=== PATIENT | male | born 1995 | race Hispanic/Latino ===

== ENCOUNTER 2017-02-12 13:24 | Emergency (ER) | payer SELFPAY ==
[2017-02-12] MEDS ORDERED: Ibuprofen 200 MG TAB ONE (13:43)
== END 2017-02-12 14:46 | disposition home or self-care (01) ==
LOC: ERS 13:24
DX: B34.9 Viral infection, unspecified (principal); J45.909 Unspecified asthma, uncomplicated; Z79.899 Other long term (current) drug therapy
CPT/HCPCS: 87081; 87430; 99283

== ENCOUNTER 2017-05-15 08:37 | Emergency (ER) | payer SELFPAY ==
[2017-05-15] MEDS ORDERED: Dexamethasone 10 MG/ML VIAL ONE (08:58)
[2017-05-15] MEDS ORDERED: Ibuprofen 800 MG TAB ONE (08:58)
--- NOTE | 2017-05-15 10:07 | RAD ---
THREE VIEWS RIGHT WRIST: History: Right wrist injury with pain one week ago. Continued pain. FINDINGS: AP, lateral, and oblique views of the right wrist were obtained and demonstrate no definite evidence of right wrist fractures, subluxations, or bony lesions. IMPRESSION: Normal three views right wrist. POS: [facility]
== END 2017-05-15 09:50 | disposition home or self-care (01) ==
LOC: ERS 08:37
DX: G56.01 Carpal tunnel syndrome, right upper limb (principal); G56.21 Lesion of ulnar nerve, right upper limb; J45.909 Unspecified asthma, uncomplicated
CPT/HCPCS: 96372; J1100

== ENCOUNTER 2017-05-22 22:15 | Emergency (ER) | payer SELFPAY ==
[2017-05-23] MEDS ORDERED: Ketorolac Tromethamine 30 MG/ML VIAL ONE (02:02)
== END 2017-05-23 02:23 | disposition home or self-care (01) ==
LOC: ERS 22:15
DX: B34.9 Viral infection, unspecified (principal); J45.909 Unspecified asthma, uncomplicated
CPT/HCPCS: 96372; J1885

== ENCOUNTER 2017-10-01 00:07 | Emergency (ER) | payer SELFPAY ==
[2017-10-01] MEDS ORDERED: Acetaminophen 500 MG TAB ONE (05:32)
[2017-10-01] MEDS ORDERED: Ketorolac Tromethamine 30 MG/ML VIAL ONE (05:32)
[2017-10-01 05:54] LABS: Troponin I Less than 0.010 ng/mL (< 0.028)
--- NOTE | 2017-10-01 08:35 | RAD ---
2 VIEWS CHEST: Date: 10/01/17 COMPARISON: 12/22/15. HISTORY: Shortness of breath. FINDINGS: There is no pneumothorax, pleural fluid, focal consolidation, or alveolar edema. Heart and mediastina l contours appear grossly unremarkable. IMPRESSION: No acute findings. POS: [facility]
== END 2017-10-01 06:22 | disposition home or self-care (01) ==
LOC: ERS 00:07
DX: R07.89 Other chest pain (principal); J45.909 Unspecified asthma, uncomplicated
CPT/HCPCS: 36415; 71046; 84484; 93005; 96372; J1885

== ENCOUNTER 2017-10-22 19:57 | Emergency (ER) | payer SELFPAY ==
[2017-10-22] MEDS ORDERED: Ketorolac Tromethamine 30 MG/ML VIAL ONE (21:40)
== END 2017-10-22 22:23 | disposition home or self-care (01) ==
LOC: ERS 19:57
DX: M54.5 Low back pain (principal); J45.909 Unspecified asthma, uncomplicated
CPT/HCPCS: 96372; J1885

== ENCOUNTER 2017-11-18 21:23 | Emergency (ER) | payer OTHER, SELFPAY | END 2017-11-18 22:40 | disposition home or self-care (01) | LOC: ERS 21:23 | DX: K02.9 Dental caries, unspecified (principal); J45.909 Unspecified asthma, uncomplicated | CPT/HCPCS: 99282 ==

== ENCOUNTER 2018-01-24 10:26 | Emergency (ER) | payer OTHER ==
[2018-01-24 10:46] LABS: #Eosinphils 0.5 thou/uL (0.0-0.7); #Lymphocytes 2.3 thou/uL (1.20-3.40); #Monocytes 0.6 thou/uL (0.11-0.59); #Neutrophils 4.1 thou/uL (1.40-6.50); %Basophils 0.5 % (0.0-1.0); %Eosinophils 6.5 % (0.0-10.0); %Lymphocytes 30.2 % (21.0-51.0); %Monocytes 8.3 % (0.0-10.0); %Neutrophils 54.5 % (42.0-75.0); Hemoglobin 16.6 g/dL (14.0-18.0); Mean Corpuscular HGB CONC 32.7 g/dL (32.0-36.0); Mean Corpuscular Hemoglobin 30.3 pg (27.0-31.0); Mean Corpuscular Volume 92.7 fL (78.0-98.0); Mean Platelet Volume 9.9 fL (7.4-10.4); Platelet Count 157 thou/uL (130-400); RBC Distribution Width 11.7 % (11.5-14.5); Red Blood Cell (RBC) Count 5.48 mill/uL (4.70-6.10); White Blood Cell (WBC) Count 7.5 thou/uL (4.8-10.8)
[2018-01-24 10:50] LABS: Bilirubin Small (Negative); Blood, Urine Negative (Negative); Clarity CLEAR (Clear); Glucose, Urine (Dipstick) Negative (Negative); Leukocyte Small (Negative); Nitrite Negative (Negative); Protein, Urine (Dipstick) Negative (Neg-Trace); Specific Gravity, Urine 1.034 (1.002-1.036); pH, Urine 6.5 (5.0-9.0)
[2018-01-24 10:55] LABS: Bacteria/HPF None Seen HPF (None Seen); Hyaline Casts/LPF 7-10 HYALINE CAST LPF (0-3 Hyaline); Pathc Cast-AUWi Flag 0.72 (0-2.49); RBC/HPF 0-3 HPF (0-3); Squamous Epithelial 0-3 HPF (0-3); WBC/HPF 21-50 HPF (0-3)
[2018-01-24 10:57] LABS: Renal Epithelial None Seen HPF (0-3); Transitional Epithelial NONE SEEN HPF (0-3)
[2018-01-24 11:10] LABS: ALT (SGPT) 27 U/L (8-55); AST (SGOT) 18 U/L (5-34); Albumin 4.5 g/dL (3.5-5.0); Alkaline Phosphatase 39 U/L (40-150); Anion Gap 14 mmol/L (10-20); BUN (Urea Nitrogen) 13 mg/dL (8.9-20.6); Bilirubin, Total 0.7 mg/dL (0.2-1.2); Calc. Creatinine Clearance 0 mL/min (70-130); Calcium 9.3 mg/dL (7.8-10.44); Carbon Dioxide 23 mmol/L (22-29); Chloride 107 mmol/L (98-107); Estimated GFR-MDRD Greater than 90; Globulin 2.8 g/dL (2.4-3.5); Glucose 107 mg/dL (70-105); Potassium 3.7 mmol/L (3.5-5.1); Protein, Total 7.3 g/dL (6.0-8.3); Sodium 140 mmol/L (136-145)
[2018-01-24] MEDS ORDERED: Ondansetron PF 4 MG/2 ML Vial ONE (12:22)
== END 2018-01-24 12:59 | disposition home or self-care (01) ==
LOC: ERS 10:26
DX: K52.9 Noninfective gastroenteritis and colitis, unspecified (principal); E86.9 Volume depletion, unspecified
CPT/HCPCS: 36415; 80053; 81003; 81015; 83690; 85025; 87086; 96374; J2405

== ENCOUNTER 2018-04-25 10:11 | Emergency (ER) | payer OTHER ==
[2018-04-25] MEDS ORDERED: Ibuprofen 800 MG TAB ONE (10:41)
[2018-04-25] MEDS ORDERED: Dexamethasone 10 MG/ML VIAL ONE (10:41)
--- NOTE | 2018-04-25 11:20 | RAD ---
TWO VIEWS CHEST: Comparison: 09-13-17 History: Cough for 3-4 days. FINDINGS: Two views of the chest show normal sized cardiomediastinal silhouette. There is no evidence of consol idation, mass, or pleural effusion. The bones are unremarkable. IMPRESSION: No evidence of acute cardiopulmonary disease. POS: [facility]
== END 2018-04-25 12:10 | disposition home or self-care (01) ==
LOC: ERS 10:11
DX: J20.9 Acute bronchitis, unspecified (principal); J06.9 Acute upper respiratory infection, unspecified; J45.909 Unspecified asthma, uncomplicated
CPT/HCPCS: 71046; 94640; 96372; J1100; J7620

== ENCOUNTER 2018-05-14 14:28 | Emergency (ER) | payer OTHER, SELFPAY ==
[2018-05-14] MEDS ORDERED: Acetaminophen 500 MG TAB ONE (14:56)
== END 2018-05-14 15:16 | disposition home or self-care (01) ==
LOC: ERS 14:28
DX: J11.1 Influenza due to unidentified influenza virus with other respiratory manifestations (principal); J45.909 Unspecified asthma, uncomplicated
CPT/HCPCS: 87804; 99283

== ENCOUNTER 2018-05-16 14:23 | Emergency (ER) | payer SELFPAY ==
--- NOTE | 2018-05-16 15:08 | RAD ---
PA AND LATERAL CHEST: Date: 05/16/18 HISTORY: Flu-like symptoms. COMPARISON: 04/25/18 exam. FINDINGS: Heart size and mediastinum are within normal limits. Lungs are clear of any infiltrative process. The re are no significant bony findings. IMPRESSION: No active intrathoracic disease. POS: [facility]
[2018-05-16] MEDS ORDERED: Acetaminophen 500 MG TAB ONE (15:41)
== END 2018-05-16 16:05 | disposition home or self-care (01) ==
LOC: ERS 14:23
DX: J11.1 Influenza due to unidentified influenza virus with other respiratory manifestations (principal); J45.909 Unspecified asthma, uncomplicated
CPT/HCPCS: 71046; 94640; J7620

== ENCOUNTER 2018-06-15 14:31 | Emergency (ER) | payer OTHER, SELFPAY ==
[2018-06-15] MEDS ORDERED: Ketorolac Tromethamine 30 MG/ML VIAL ONE (16:07)
== END 2018-06-15 16:31 | disposition home or self-care (01) ==
LOC: ERS 14:31
DX: M54.5 Low back pain (principal); J45.909 Unspecified asthma, uncomplicated; W17.89XA Other fall from one level to another, initial encounter
CPT/HCPCS: 96372; J1885

== ENCOUNTER 2018-06-25 22:12 | Emergency (ER) | payer SELFPAY ==
[2018-06-25] MEDS ORDERED: Ketorolac Tromethamine 30 MG/ML VIAL ONE (22:30)
--- NOTE | 2018-06-25 22:51 | RAD ---
Left elbow 4 views: 06/25/2018 COMPARISON: None HISTORY: Fall, trauma, pain FINDINGS: No fracture or dislocation. No radiopaque foreign body or subcutaneous gas. No elbow joint effusion. IMPRESSION: No acute findings.
== END 2018-06-25 23:12 | disposition home or self-care (01) ==
LOC: ERS 22:12
DX: S50.02XA Contusion of left elbow, initial encounter (principal); J45.909 Unspecified asthma, uncomplicated; W20.8XXA Other cause of strike by thrown, projected or falling object, initial encounter
CPT/HCPCS: 96372; J1885

== ENCOUNTER 2018-07-05 20:46 | Emergency (ER) | payer SELFPAY | END 2018-07-05 22:14 | disposition home or self-care (01) | LOC: ERS 20:46 | DX: F41.0 Panic disorder [episodic paroxysmal anxiety] (principal); J45.909 Unspecified asthma, uncomplicated | CPT/HCPCS: 99283 ==

== ENCOUNTER 2018-09-02 12:14 | Emergency (ER) | payer SELFPAY ==
[2018-09-02] MEDS ORDERED: Ibuprofen 800 MG TAB ONE (12:54)
[2018-09-02] MEDS ORDERED: Acetaminophen 500 MG TAB ONE (12:54)
[2018-09-02] MEDS ORDERED: Albuterol Sulfate 2.5 mg/3 ml Neb ONE (13:03)
== END 2018-09-02 14:55 | disposition home or self-care (01) ==
LOC: ERS 12:14
DX: J45.901 Unspecified asthma with (acute) exacerbation (principal); G44.209 Tension-type headache, unspecified, not intractable
CPT/HCPCS: 94640; J7611

== ENCOUNTER 2019-01-23 22:43 | Emergency (ER) | payer SELFPAY ==
[2019-01-23 23:16] LABS: Bacteria/HPF None Seen HPF (None Seen); Bilirubin Negative (Negative); Blood, Urine Negative (Negative); Clarity Clear (Clear); Glucose, Urine (Dipstick) Normal (Negative); Leukocyte 250 Leu/uL (Negative); Nitrite Negative (Negative); Protein, Urine (Dipstick) 20 mg/dL (Neg-Trace); RBC/HPF 0-3 HPF (0-3); Squamous Epithelial 0-3 HPF (0-3); Urobilinogen Normal mg/dL (Less than 2); WBC/HPF 21-50 HPF (0-3)
== END 2019-01-24 00:39 | disposition home or self-care (01) ==
LOC: ERS 22:43
DX: N47.1 Phimosis (principal); J45.909 Unspecified asthma, uncomplicated
CPT/HCPCS: 36416; 81003; 81015; 87070; 87077; 87086; 99283

== ENCOUNTER 2019-06-24 13:24 | Emergency (ER) | payer SELFPAY | END 2019-06-24 14:14 | disposition home or self-care (01) | LOC: ERS 13:24 | DX: J06.9 Acute upper respiratory infection, unspecified (principal); J45.909 Unspecified asthma, uncomplicated | CPT/HCPCS: 99283 ==

== ENCOUNTER 2019-09-28 22:10 | Emergency (ER) | payer OTHER, SELFPAY ==
[2019-09-29 14:24] LABS: SARS-CoV-2 MS2 Positive; SARS-CoV-2 N Gene Positive; SARS-CoV-2 S Gene Positive; SARS-CoV-2 by NAA DETECTED (NotDetected); SARS-CoV-2 orf1ab Positive
== END 2019-09-28 23:42 | disposition home or self-care (01) ==
LOC: ERS 22:10
DX: U07.1 COVID-19 (principal); J45.909 Unspecified asthma, uncomplicated
CPT/HCPCS: 87635; 99283; U0003